=== PATIENT | female | born 1995 ===

== ENCOUNTER 2017-08-11 13:17 | Emergency (ER) | payer BC ==
[2017-08-11] MEDS ORDERED: Ketorolac INJ* 30 MG/ML 1 ML VIAL IM ONE (15:27)
[2017-08-11] MEDS ORDERED: Dexamethasone TAB* 4 MG PO ONE (15:27)
[2017-08-11] MEDS ORDERED: Cyclobenzaprine TAB* 10 MG PO ONE (15:27)
--- NOTE | 2017-08-11 15:32 | ED ---
Neck Pain - HPI Summary HPI Summary: 22-year-old female presents with neck pain for the past day. States she woke up with stiffness on the right side of her neck. She denies any recent illness fevers or headaches. She states she has no midline tenderness. She states she is unable to turn her neck to the right. she denies any numbness or tingling. She denies any weakness. She has tried ibuprofen without relief. This is never happened before. She denies injury. She denies any photophobia. - History of Current Complaint Chief Complaint: EDNeckComplaint Stated Complaint: NECK PAIN/WEAKNESS/STIFFNESS Time Seen by Provider: 08/11/17 15:10 Pain Intensity: 9 - Allergies/Home Medications Allergies/Adverse Reactions: Allergies Allergy/AdvReac Type Severity Reaction Status Date / Time seafood Allergy Hives Uncoded 08/11/17 15:18 PMH/Surg Hx/FS Hx/Imm Hx Endocrine/Hematology History: Denies: Hx Anticoagulant Therapy Respiratory History: Denies: Hx Asthma Infectious Disease History: No Infectious Disease History: Denies: Traveled Outside the [place] in Last 30 Days - Family History Known Family History: Positive: Hypertension - Social History Alcohol Use: Rare Substance Use Type: Reports: None Smoking Status (MU): Never Smoked Tobacco Review of Systems Negative: Fever Negative: Chest Pain Negative: Shortness Of Breath Positive: Myalgia - neck pain All Other Systems Reviewed And Are Negative: Yes Physical Exam Triage Information Reviewed: Yes Vital Signs On Initial Exam: Initial Vitals Temp Pulse Resp BP Pulse Ox 98.3 F 52 16 115/61 99 08/11/17 13:26 08/11/17 13:26 08/11/17 13:26 08/11/17 13:26 08/11/17 13:26 Vital Signs Reviewed: Yes Appearance: Positive: Well-Appearing Skin: Positive: Warm, Dry Head/Face: Positive: Normal Head/Face Inspection Eyes: Positive: Normal, Conjunctiva Clear Neck: Positive: Other: - tenderness right side of neck, no midline tenderness Respiratory/Lung Sounds: Positive: Clear to Auscultation, Breath Sounds Present Cardiovascular: Positive: Normal, RRR Musculoskeletal: Positive: Normal Neurological: Positive: Normal Psychiatric: Positive: Normal Diagnostics - Vital Signs Vital Signs Temp Pulse Resp BP Pulse Ox 08/11/17 13:26 98.3 F 52 16 115/61 99 - Laboratory Lab Statement: Any lab studies that have been ordered have been reviewed, and results considered in the medical decision making process. Neck Course/Dx - Course Course Of Treatment: 22-year-old female presents with neck pain for the past day. States she woke up with stiffness on the right side of her neck. She denies any recent illness fevers or headaches. She states she has no midline tenderness. She states she is unable to turn her neck to the right. she denies any numbness or tingling. She denies any weakness. She has tried ibuprofen without relief. This is never happened before. She denies injury. She denies any photophobia. On exam no midline tenderness. Tenderness right side of her neck over trapezius muscles. Good strength in upper extremities. Biceps reflex intact. Will treat as a torticollis with muscle relaxer and steroid. Told to continue ibuprofen. Told to follow up with [facility]. Patient understands agrees with plan. - Diagnoses Differential Dx/HQI/PQRI: Positive: Sprain, Strain, Torticollis Provider Diagnoses: Neck pain Discharge - Sign-Out/Discharge Documenting (check all that apply): Discharge - Discharge Plan Condition: Good Disposition: HOME Prescriptions: Cyclobenzaprine TAB* [Flexeril 10 MG TAB*] 10 mg PO TID PRN #12 tab PRN Reason: Pain methylPREDNISolone [Medrol Dosepak 4 MG*] 4 mg PO .SEE DARYA INSTRUCTION #1 packet Patient Education Materials: Neck Pain (ED) Referrals: No Primary Care Phys,NOPCP [Primary Care Provider] - Additional Instructions: Follow directions on package for Medrol pack Take muscle relaxers three times a day Use ibuprofen or Tylenol for pain every 6 hours heat area, move as much as possible Follow up with primary within 5 days Return to ED if develop any new or worsening symptoms - Billing Disposition and Condition Condition: GOOD Disposition: HOME
[2017-08-11 15:53] VITALS: BP 114/55
== END 2017-08-11 15:53 | disposition home or self-care (01) ==
LOC: ED 13:17
DX: M54.2 Cervicalgia (principal)
CPT/HCPCS: 96372; 99282; A9270-GY; J1885; J8540